=== PATIENT | female | born 1975 | race Caucasian/White ===

== ENCOUNTER 2020-07-01 09:33 | Emergency (ER) | payer OTHER ==
[~2020-07-01] VITALS: Ht 175.3 cm; Wt 106.1 kg
[2020-07-01 10:56] VITALS: BP 132/80
== END 2020-07-01 10:57 | disposition home or self-care (01) ==
LOC: ER 09:33
DX: L08.9 Local infection of the skin and subcutaneous tissue, unspecified (principal); Z30.433 Encounter for removal and reinsertion of intrauterine contraceptive device; Z98.890 Other specified postprocedural states; Z91.040 Latex allergy status; Z90.13 Acquired absence of bilateral breasts and nipples

== ENCOUNTER 2020-12-23 18:22 | Emergency (ER) | payer OTHER ==
[~2020-12-23] VITALS: Ht 175.3 cm; Wt 99.8 kg
[2020-12-23 18:31] VITALS: BP 116/71
== END 2020-12-23 20:27 | disposition home or self-care (01) ==
LOC: ER 18:22
DX: S82.62XA Displaced fracture of lateral malleolus of left fibula, initial encounter for closed fracture (principal); I10 Essential (primary) hypertension; Z98.890 Other specified postprocedural states; Z88.6 Allergy status to analgesic agent; Z91.041 Radiographic dye allergy status; Z91.040 Latex allergy status; Z88.5 Allergy status to narcotic agent; Z91.014 Allergy to mammalian meats; Z91.013 Allergy to seafood; Z88.2 Allergy status to sulfonamides; Z91.018 Allergy to other foods; V19.3XXA Pedal cyclist (driver) (passenger) injured in unspecified nontraffic accident, initial encounter; Y93.89 Activity, other specified; Y92.89 Other specified places as the place of occurrence of the external cause; Y99.8 Other external cause status